=== PATIENT | male | born 1965 | race American Indian/Alaskan Native ===

== ENCOUNTER 2018-02-24 08:05 | Emergency (ER) | payer MEDICARE ==
[2018-02-24] MEDS ORDERED: ZOFRAN IV ONE (08:45)
[2018-02-24] MEDS ORDERED: NACL 0.9% 1000 ML 1,000 ML IV ONE ×3 (08:45→11:35)
[2018-02-24] MEDS ORDERED: ANTIVERT PO ONE (08:46)
[2018-02-24 09:03] LABS: Basophils % (Auto) 0.5 % (0.0-1.8); Eosinophils % (Auto) 0.2 % (0.0-4.3); Hematocrit 50.5 % (35.5-45.6); Hemoglobin 16.7 gm/dl (11.8-15.2); Lymphocytes # (Auto) 1.3 K/mm3 (1.2-5.4); Lymphocytes % (Auto) 15.1 % (13.4-35.0); Mean Corpuscular HGB Conc 33 % (32-34); Mean Corpuscular Volume 92 fl (84-94); Monocytes # (Auto) 0.4 K/mm3 (0.0-0.8); Monocytes % (Auto) 4.4 % (0.0-7.3); Platelet Count 248 K/mm3 (140-440); Red Blood Count 5.49 M/mm3 (3.65-5.03); Red Cell Distribution Width 14.5 % (13.2-15.2)
[2018-02-24 09:10] LABS: Creatine Kinase MB 1.8 ng/mL (0.0-4.0)
[2018-02-24 09:11] LABS: Alanine Aminotransferase 23 units/L (7-56); Albumin 4.7 g/dL (3.9-5); BUN/Creatinine Ratio 10; Blood Urea Nitrogen 11 mg/dL (9-20); Calcium 9.5 mg/dL (8.4-10.2); Hemolysis Index 47
[2018-02-24 09:28] LABS: INR 0.97 (0.87-1.13)
--- NOTE | 2018-02-24 09:28 | Emergency Department Report ---
HPI - General Chief Complaint: Nausea/Vomiting/Diarrhea Time Seen by Provider: 02/24/18 08:35 - HPI HPI: Room 3 The patient is a 52-year-old male presenting with a chief complaint of vomiting and dizziness. Patient states he's had nausea vomiting and diarrhea for the past 3 days. This morning the patient felt very weak and dizzy whenever he attempted to lift himself from the bed. Patient states it feels the room spinning. Patient complains of occasional pain in bilateral lower quadrants but states that the pain in his left lower quadrant has been intermittent for 8-10 years. Patient complains of chronic pain in his lower back and neck also p resent for years. Patient denies any other new pain. Patient denies recent antibiotic use. Patient denies fever or sick contacts. Location: Gastrointestinal system, see above Duration: 3 days Quality: [See above] Severity: Moderate Modifying factors: [see above] Context: [see above] Mode of transportation: [not driving] ED Past Medical Hx - Past Medical History Hx Hypertension: Yes Hx Arthritis: Yes (hands, right knees, back) Additional medical history: high cholesterol, chronic back pain - Surgical History Past Surgical History?: Yes Additional Surgical History: back - Family History Family history: no significant - Social History Smoking Status: Former Smoker (none 17 years) Substance Use Type: None (denies illicit drug use), Alcohol (occasional) - Medications Home Medications: Home Medications Medication Instructions Recorded Confirmed Last Taken Type Diclofenac Sodium [Pennsaid 1.5%] 22 drops PO BID 09/02/13 09/02/13 08/29/13 History Ibuprofen/Famotidine [Duexis 1 tab PO Q4-6H PRN 09/02/13 09/02/13 Unknown History 800-26.6 mg Tablet] Tizanidine HCl 4 mg PO DAILY 09/02/13 09/02/13 08/29/13 History traZODone [Desyrel] 100 mg PO QHS 09/02/13 09/02/13 Unknown History Bacitracin/Polymyxin B Sulfate 1 applicatio TP DAILY #1 oint...g. 10/03/17 Unknown Rx [Polysporin Ointment] HYDROcodone/ACETAMINOPHEN [Elmore 1 each PO Q4-6H PRN #20 tablet 10/03/17 Unknown Rx 10-325 Tablet] Sulfamethoxazole/Trimethoprim 1 each PO BID #20 tablet 10/03/17 Unknown Rx [Bactrim DS TAB] Meclizine [Antivert] 25 mg PO TID PRN #20 tablet 02/24/18 Unknown Rx Ondansetron [Zofran ODT TAB] 8 mg PO Q8HR #20 tab.rapdis 02/24/18 Unknown Rx Promethazine [Phenergan] 25 mg IA Q6HR PRN #5 supp.rect 02/24/18 Unknown Rx ED Review of Systems ROS: Stated complaint: VOMITING/DIARRHEA/DISORIENTATION Other details as noted in HPI Constitutional: denies: fever Eyes: denies: eye pain ENT: denies: throat pain Respiratory: no symptoms reported Cardiovascular: denies: chest pain Endocrine: no symptoms reported Gastrointestinal: abdominal pain, nausea, vomiting, diarrhea Genitourinary: denies: dysuria Musculoskeletal: back pain, arthralgia Neurological: vertigo. denies: headache Physical Exam - Physical Exam Vital Signs: Vital Signs 02/24/18 02/24/18 02/24/18 08:19 08:56 09:00 Temperature 97.3 F L Pulse Rate 70 67 Respiratory 18 16 Rate Blood Pressure 142/97 120/82 123/83 O2 Sat by Pulse 97 96 Oximetry Physical Exam: GENERAL: The patient is well-developed well-nourished male lying on stretcher not appearing to be in acute distress. [] HEENT: Normocephalic. Atraumatic. Extraocular motions are intact. Patient has moist mucous membranes. No nystagmus noted NECK: Supple. No meningitic signs are noted. CHEST/LUNGS: Clear to auscultation. There is no respiratory distress noted. HEART/CARDIOVASCULAR: Regular. There is no tachycardia. There is no gallop rub or murmur. ABDOMEN: Abdomen is soft, with mild discomfort to palpation in the left lower quadrant and right lower quadrant. Patient has normal bowel sounds. There is no abdominal distention. SKIN: There is no rash. There is no edema. There is no diaphoresis. NEURO: The patient is awake, alert, and oriented. The patient is cooperative. The patient has no focal neurologic deficits. The patient has normal speech. The patient a seventh nerve palsy from previous traumatic injury at work otherwise Cranial nerves II through XII grossly intact, no drift. No dysmetria noted with [id number] bilaterally MUSCULOSKELETAL: There is no evidence of acute injury. ED Course Vital Signs 02/24/18 02/24/18 02/24/18 08:19 08:56 09:00 Temperature 97.3 F L Pulse Rate 70 67 Respiratory 18 16 Rate Blood Pressure 142/97 120/82 123/83 O2 Sat by Pulse 97 96 Oximetry ED Medical Decision Making - Lab Data Result diagrams: 02/24/18 08:38 02/24/18 08:38 Laboratory Tests 02/24/18 02/24/18 02/24/18 08:38 08:38 08:45 WBC 8.9 RBC 5.49 H Hgb 16.7 H Hct 50.5 H MCV 92 MCH 30 MCHC 33 RDW 14.5 Plt Count 248 Lymph % (Auto) 15.1 [place] % (Auto) 4.4 Eos % (Auto) 0.2 Baso % (Auto) 0.5 Lymph # 1.3 [place] # 0.4 Eos # 0.0 Baso # 0.0 Seg Neutrophils % 79.8 H Seg Neutrophils # 7.1 PT 13.3 INR 0.97 APTT 22.4 L Sodium 141 Potassium 4.1 Chloride 99.2 Carbon Dioxide 25 Anion Gap 21 BUN 11 Creatinine 1.1 Estimated GFR > 60 BUN/Creatinine Ratio 10 Glucose 142 H Calcium 9.5 Total Bilirubin 0.80 AST 24 ALT 23 Alkaline Phosphatase 58 Total Creatine Kinase 324 H CK-MB (CK-2) 1.8 CK-MB (CK-2) Rel Index 0.5 Troponin T < 0.010 Total Protein 8.1 Albumin 4.7 Albumin/Globulin Ratio 1.4 Lipase 51 Urine Color Urine Turbidity Urine pH Ur Specific [place] Urine Protein Urine Glucose (UA) Urine Ketones Urine Blood Urine Nitrite Urine Bilirubin Urine Urobilinogen Ur Leukocyte Esterase Urine WBC (Auto) Urine RBC (Auto) Urine Mucus 02/24/18 10:12 WBC RBC Hgb Hct MCV MCH MCHC RDW Plt Count Lymph % (Auto) [place] % (Auto) Eos % (Auto) Baso % (Auto) Lymph # [place] # Eos # Baso # Seg Neutrophils % Seg Neutrophils # PT INR APTT Sodium Potassium Chloride Carbon Dioxide Anion Gap BUN Creatinine Estimated GFR BUN/Creatinine Ratio Glucose Calcium Total Bilirubin AST ALT Alkaline Phosphatase Total Creatine Kinase CK-MB (CK-2) CK-MB (CK-2) Rel Index Troponin T Total Protein Albumin Albumin/Globulin Ratio Lipase Urine Color Straw Urine Turbidity Clear Urine pH 6.0 Ur Specific [place] 1.026 Urine Protein <15 mg/dl Urine Glucose (UA) Neg Urine Ketones 20 Urine Blood Neg Urine Nitrite Neg Urine Bilirubin Neg Urine Urobilinogen < 2.0 Ur Leukocyte Esterase Neg Urine WBC (Auto) 1.0 Urine RBC (Auto) Not Reportable Urine Mucus Few - EKG Data -: EKG Interpreted by Sd EKG shows normal: sinus rhythm Rate: normal - EKG Data When compared to previous EKG there are: previous EKG unavailable Interpretation: other (no ischemic changes seen) - Radiology Data Radiology results: report reviewed (CT head, CT abdomen and pelvis, MRI brain, MRA neck), image reviewed (CT head, CT abdomen and pelvis, MRI brain, MRA neck) Findings [address] [address] Cat Scan Report Signed Patient: LARS BRENNAN MR#: [id number] : 1965 Acct:[id number] Age/Sex: 52 / M ADM Date: 02/24/18 Loc: ED Attending Dr: Ordering Physician: BECKY GODWIN MD Date of Service: 02/24/18 Procedure(s): CT head/brain wo con Accession Number(s): [id number] cc: BECKY GODWIN MD CT HEAD WITHOUT CONTRAST: HISTORY: Dizziness. TECHNIQUE: Sequential 2.5mm CT images. COMPARISON: none. FINDINGS: Cerebral Parenchyma: Within normal limits. Cerebellum: Within normal limits. Brainstem: Within normal limits. Ventricles: Normal. Sella: Normal. Extra-axial spaces: Normal. Basal Cisterns: Normal. Intracranial Hemorrhage: None. Midline Shift: None. Calvarium: Normal. Sinuses: Normal. Mastoid Air Cells: Normal. Visualized Orbits: Normal. IMPRESSION: Cranial CT scan within normal limits. Transcribed By: TTR Dictated By: ANU CEDILLO JR, MD Electronically Authenticated By: ANU CEDILLO JR, MD Signed Date/Time: 02/24/18 1005 DD/ 1005 TD/TT: 02/24/18 [address] [address] Cat Scan Report Signed Patient: LARS BRENNAN MR#: [id number] : 1965 Acct:[id number] Age/Sex: 52 / M ADM Date: 02/24/18 Loc: ED Attending Dr: Ordering Physician: BECKY GODWIN MD Date of Service: 02/24/18 Procedure(s): CT abdomen pelvis w con Accession Number(s): [id number] cc: BECKY GODWIN MD CT ABDOMEN PELVIS WITH CONTRAST: HISTORY: Vomiting, diarrhea, right lower quadrant pain, left lower quadrant pain. COMPARISON: none. TECHNIQUE: Helical CT in 1.25mm i ntervals following IV contrast. Sagittal and coronal reconstructions. FINDINGS: Lung bases: Normal. Liver: Mild fatty infiltration is identified throughout the liver. A 2.9 cm cavernous hemangioma is noted in the right hepatic lobe. A second 2.6 cm cavernous hemangiomas noted in the left hepatic lobe. No suspicious liver mass. Biliary system: Normal. Pancreas: Normal. Spleen: Normal. Kidneys/ureters/bladder: A 4.4 mm calculus is identified in the distal right ureter. This may actually represent 2 smaller adjacent stones. There is minimal right hydronephrosis. A 2 mm calyceal stone is also identified in the mid right kidney. No left hydronephrosis. There are 2 simple right renal cysts measuring up to 2.8 cm in the superior right kidney. No left renal lesion. The bladder and prostate gland are unremarkable. Adrenal glands: Normal. Aorta: Normal. Intestines: Within normal limits given no oral contrast was administered. Appendix: Normal. Pelvic viscera: Normal. Ascites: None. Adenopathy: None. Musculoskeletal: Normal. IMPRESSION: 4.4 mm calculus in the distal right ureter, minimally obstructing. 2 mm right renal stone, nonobstructing. Right renal cysts. Cavernous hemangiomas of the liver. No acute inflammatory process is identified. Transcribed By: TTR Dictated By: ANU CEDILLO JR, MD Electronically Authenticated By: ANU CEDILLO JR, MD Signed Date/Time: 02/24/18 1035 DD/ 1031 TD/TT: 02/24/18 1035 [facility] [address] [place] [address] Magnetic Resonance Report Signed Patient: LARS BRENNAN MR#: [id number] : 1965 Acct:[id number] Age/Sex: 52 / M ADM Date: 02/24/18 Loc: ED Attending Dr: Ordering Physician: BECKY GODWIN MD Date of Service: 02/24/18 Procedure(s): MR MRA/MRV neck wo con Accession Number(s): [id number] cc: BECKY GODWIN MD FINAL REPORT EXAM: MR MRA/MRV NECK WO CON HISTORY: vertigoinpatient COMPARISON: None. TECHNIQUE: 3D upma-sg-urrufs imaging of the arteries of the neck was performed. FINDINGS: There is normal signal within the bilateral common carotid arteries, internal carotid arteries, and external carotid arteries. There is normal signal in the bilateral vertebral arteries. There is no dropout to suggest stenosis. There is no evidence of aneurysm. IMPRESSION: Normal MR angiogram of the neck. Transcribed By: PANCHITO Dictated By: RULA PEREZ MD Electronically Authenticated By: RULA PEREZ MD Signed Date/Time: 02/24/181645 DD/ 47 TD/TT: 02/24/181647 [facility] [address] [place] [address] Magnetic Resonance Report Signed Patient: LARS BRENNAN MR#: [id number] : 1965 Acct:[id number] Age/Sex: 52 / M ADM Date: 02/24/18 Loc: ED Attending Dr: Ordering Physician: BECKY GODWIN MD Date of Service: 02/24/18 Procedure(s): MR brain wo con Accession Number(s): [id number] cc: BECKY GODWIN MD FINAL REPORT EXAM: MR BRAIN WO CON HISTORY: vertigoinpatient COMPARISON: None. TECHNIQUE: Multiplanar multisequential imaging of the brain was performed without administration of IV contrast. FINDINGS: There is no restricted diffusion to suggest acute ischemic injury. There is no susceptibility artifact on gradient echo imaging to suggest parenchymal hemorrhage. There is normal busby-white differentiation. There is normal brain volume for the patient's age. There is no mass or mass effect. The ventricles are midline and are not enlarged. The subarachnoid spaces and basilar cisterns are clear. The flow voids at the base of the brain are intact. There is normal signal of the bony anita rium and the soft tissues of the scalp. IMPRESSION: No acute intracranial abnormality. Transcribed By: PANCHITO Dictated By: RULA PEREZ MD Electronically Authenticated By: RULA PEREZ MD Signed Date/Time: 02/24/181650 DD/ 52 TD/TT: 02/24/181652 - Differential Diagnosis gastroenteritis, dehydration, small bowel obstruction, ICH Critical care attestation.: If time is entered above; I have spent that time in minutes in the direct care of this critically ill patient, excluding procedure time. ED Disposition Clinical Impression: Vertigo Disposition: DC-01 TO HOME OR SELFCARE Is pt being admited?: No Does the pt Need Aspirin: No Condition: Stable Instructions: Vertigo (ED) Additional Instructions: Return to the emergency department immediately should you develop worsening symptoms, fever, inability to tolerate food or liquid or any other concerns. Prescriptions: Meclizine [Antivert] 25 mg PO TID PRN #20 tablet PRN Reason: Vertigo Ondansetron [Zofran ODT TAB] 8 mg PO Q8HR #20 tab.rapdis Promethazine [Phenergan] 25 mg IA Q6HR PRN #5 supp.rect PRN Reason: Vomiting Referrals: PRIMARY CARE, [Primary Care Provider] - 3-5 Days KYARA HOPKINS MD [Staff Physician] - 3-5 Days (Dr. Hopkins is a neurologist. Please follow up with him for further evaluation) Forms: Accompanied Note
[2018-02-24 09:29] LABS: Partial Thromboplastin Time 22.4 Sec. (24.2-36.6)
--- NOTE | 2018-02-24 10:08 | Cat Scan Report ---
CT HEAD WITHOUT CONTRAST: HISTORY: Dizziness. TECHNIQUE: Sequential 2.5mm CT images. COMPARISON: none. FINDINGS: Cerebral Parenchyma: Within normal limits. Cerebellum: Within normal limits. Brainstem: Within normal limits. Ventricles: Normal. Sella: Normal. Extra-axial spaces: Normal. Basal Cisterns: Normal. Intracranial Hemorrhage: None. Midline Shift: None. Calvarium: Normal. Sinuses: Normal. Mastoid Air Cells: Normal. Visualized Orbits: Normal. IMPRESSION: Cranial CT scan within normal limits.
--- NOTE | 2018-02-24 10:38 | Cat Scan Report ---
CT ABDOMEN PELVIS WITH CONTRAST: HISTORY: Vomiting, diarrhea, right lower quadrant pain, left lower quadrant pain. COMPARISON: none. TECHNIQUE: Helical CT in 1.25mm intervals following IV contrast. Sagittal and coronal reconstructions. FINDINGS: Lung bases: Normal. Liver: Mild fatty infiltration is identified throughout the liver. A 2.9 cm cavernous hemangioma is noted in the right hepatic lobe. A second 2.6 cm cavernous hemangiomas noted in the left hepatic lobe. No suspicious liver mass. Biliary system: Normal. Pancreas: Normal. Spleen: Normal. Kidneys/ureters/bladder: A 4.4 mm calculus is identified in the distal right ureter. This may actually represent 2 smaller adjacent stones. There is minimal right hydronephrosis. A 2 mm calyceal stone is also identified in the mid right kidney. No left hydronephrosis. There are 2 simple right renal cysts measuring up to 2.8 cm in the superior right kidney. No left renal lesion. The bladder and prostate gland are unremarkable. Adrenal glands: Normal. Aorta: Normal. Intestines: Within normal limits given no oral contrast was administered. Appendix: Normal. Pelvic viscera: Normal. Ascites: None. Adenopathy: None. Musculoskeletal: Normal. IMPRESSION: 4.4 mm calculus in the distal right ureter, minimally obstructing. 2 mm right renal stone, nonobstructing. Right renal cysts. Cavernous hemangiomas of the liver. No acute inflammatory process is identified.
[2018-02-24 10:51] LABS: Bilirubin,Urine NEG (Negative); Blood,Urine NEG (Negative); Color,Urine Straw (Yellow); Mucus,Urine FEW /HPF; Protein,Urine <15 mg/dL mg/dL (Negative); Urobilinogen,Urine < 2.0 mg/dL (<2.0)
--- NOTE | 2018-02-24 16:46 | Magnetic Resonance Report ---
FINAL REPORT EXAM: MR MRA/MRV NECK WO CON HISTORY: vertigoinpatient COMPARISON: None. TECHNIQUE: 3D [id number]-bb-cdaspz imaging of the arteries of the neck was performed. FINDINGS: There is normal signal within the bilateral common carotid arteries, internal carotid arteries, and e xternal carotid arteries. There is normal signal in the bilateral vertebral arteries. There is no paul pout to suggest stenosis. There is no evidence of aneurysm. IMPRESSION: Normal MR angiogram of the neck.
--- NOTE | 2018-02-24 16:51 | Magnetic Resonance Report ---
FINAL REPORT EXAM: MR BRAIN WO CON HISTORY: vertigoinpatient COMPARISON: None. TECHNIQUE: Multiplanar multisequential imaging of the brain was performed without administration of IV contrast. FINDINGS: There is no restricted diffusion to suggest acute ischemic injury. There is no susceptibility artifac t on gradient echo imaging to suggest parenchymal hemorrhage. There is normal busby-white differentiat ion. There is normal brain volume for the patient's age. There is no mass or mass effect. The ventric les are midline and are not enlarged. The subarachnoid spaces and basilar cisterns are clear. The rachael w voids at the base of the brain are intact. There is normal signal of the bony calvarium and the sof t tissues of the scalp. IMPRESSION: No acute intracranial abnormality.
[2018-02-24 17:14] VITALS: BP 121/82
== END 2018-02-24 17:15 | disposition home or self-care (01) ==
LOC: ED 08:05
DX: R42 Dizziness and giddiness (principal); R11.2 Nausea with vomiting, unspecified; R19.7 Diarrhea, unspecified; R10.32 Left lower quadrant pain; M54.2 Cervicalgia; I10 Essential (primary) hypertension; M17.11 Unilateral primary osteoarthritis, right knee; M19.042 Primary osteoarthritis, left hand; M19.041 Primary osteoarthritis, right hand; M19.90 Unspecified osteoarthritis, unspecified site; G89.29 Other chronic pain; E78.00 Pure hypercholesterolemia, unspecified; Z87.891 Personal history of nicotine dependence; M54.5 Low back pain; R93.0 Abnormal findings on diagnostic imaging of skull and head, not elsewhere classified
CPT/HCPCS: 36415; 70450; 70547; 70551; 74177; 80053; 81001; 82550; 82553; 83690; 84484; 85025; 85610; 85730; 93005; 93010; 96361; 96374; 99284; J2405; J7030; Q9967

== ENCOUNTER 2018-06-28 10:57 | Emergency (ER) | payer MEDICARE ==
--- NOTE | 2018-06-28 11:33 | Emergency Department Report ---
Blank Doc - Documentation Documentation: This is a 52-year-old male that presents with lower back pain after using the restroom. Denies any trauma. This initial assessment/diagnostic orders/clinical plan/treatment(s) is/are subject to change based on patient's health status, clinical progression and re- assessment by fellow clinical providers in the ED. Further treatment and workup at subsequent clinical providers discretion. Patient/guardians urged not to elope from the ED as their condition may be serious if not clinically assessed and managed. Initial orders include: 1- Patient sent to [facility] for further evaluation and treatment
[2018-06-28] MEDS ORDERED: DELTASONE PO ONE (13:34)
[2018-06-28] MEDS ORDERED: TORADOL IM ONE (13:34)
--- NOTE | 2018-06-28 13:37 | Emergency Department Report ---
ED Back Pain/Injury HPI - General Chief Complaint: Back Pain/Injury Stated Complaint: LOWER BACK PAIN/EXTREME Time Seen by Provider: 06/28/18 11:32 Source: patient Limitations: No Limitations - History of Present Illness Initial Comments: This is a 52-year-old male with a history of chronic back pain who presents today stating that he aggravated his back earlier this morning while he was in the bathroom. Patient states he fell pain on his right side. Lower back pain radiated down his buttocks. Patient states that earlier this morning pain was about 12 out of 10 and now is gone down to about 7 out of 10 intensity. Patient states that he does see a pain clinic . He denies dysuria, trauma or any injuries MD Complaint: back pain - Related Data Home Medications Medication Instructions Recorded Confirmed Last Taken Diclofenac Sodium [Pennsaid 1.5%] 22 drops PO BID 09/02/13 09/02/13 08/29/13 Ibuprofen/Famotidine [Duexis 1 tab PO Q4-6H PRN 09/02/13 09/02/13 Unknown 800-26.6 mg Tablet] Tizanidine HCl 4 mg PO DAILY 09/02/13 09/02/13 08/29/13 traZODone [Desyrel] 100 mg PO QHS 09/02/13 09/02/13 Unknown Previous Rx's Medication Instructions Recorded Last Taken Type Bacitracin/Polymyxin B Sulfate 1 applicatio TP DAILY #1 oint...g. 10/03/17 Unknown Rx [Polysporin Ointment] HYDROcodone/ACETAMINOPHEN [[place] 1 each PO Q4-6H PRN #20 tablet 10/03/17 Unknown Rx 10-325 Tablet] Sulfamethoxazole/Trimethoprim 1 each PO BID #20 tablet 10/03/17 Unknown Rx [Bactrim DS TAB] Meclizine [Antivert] 25 mg PO TID PRN #20 tablet 02/24/18 Unknown Rx Ondansetron [Zofran ODT TAB] 8 mg PO Q8HR #20 tab.rapdis 02/24/18 Unknown Rx Promethazine [Phenergan] [address] Q6HR PRN #5 supp.rect 02/24/18 Unknown Rx Allergies Allergy/AdvReac Type Severity Reaction Status Date / Time No Known Allergies Allergy Unverified 09/02/13 06:41 ED Review of Systems ROS: Stated complaint: LOWER BACK PAIN/EXTREME Other details as noted in HPI Comment: All other systems reviewed and negative ED Past Medical Hx - Past Medical History Previous Medical History?: Yes Hx Hypertension: Yes Hx Heart Attack/AMI: No Hx Congestive Heart Failure: No Hx Arthritis: Yes (hands, right knees, back) Hx HIV: No Additional medical history: high cholesterol, chronic back pain - Surgical History Past Surgical History?: Yes Additional Surgical History: back - Social History Smoking Status: Never Smoker Substance Use Type: Alcohol - Medications Home Medications: Home Medications Medication Instructions Recorded Confirmed Last Taken Type Diclofenac Sodium [Pennsaid 1.5%] 22 drops PO BID 09/02/13 09/02/13 08/29/13 History Ibuprofen/Famotidine [Duexis 1 tab PO Q4-6H PRN 09/02/13 09/02/13 Unknown History 800-26.6 mg Tablet] Tizanidine HCl 4 mg PO DAILY 09/02/13 09/02/13 08/29/13 History traZODone [Desyrel] 100 mg PO QHS 09/02/13 09/02/13 Unknown History Bacitracin/Polymyxin B Sulfate 1 applicatio TP DAILY #1 oint...g. 10/03/17 Unknown Rx [Polysporin Ointment] HYDROcodone/ACETAMINOPHEN [[place] 1 each PO Q4-6H PRN #20 tablet 10/03/17 Unknown Rx 10-325 Tablet] Sulfamethoxazole/Trimethoprim 1 each PO BID #20 tablet 10/03/17 Unknown Rx [Bactrim DS TAB] Meclizine [Antivert] 25 mg PO TID PRN #20 tablet 02/24/18 Unknown Rx Ondansetron [Zofran ODT TAB] 8 mg PO Q8HR #20 tab.rapdis 02/24/18 Unknown Rx Promethazine [Phenergan] [address] Q6HR PRN #5 supp.rect 02/24/18 Unknown Rx ED Physical Exam - General Limitations: No Limitations General appearance: alert, in no apparent distress - Head Head exam: Present: atraumatic, normocephalic - Eye Eye exam: Present: normal appearance - ENT ENT exam: Present: mucous membranes moist - Neck Neck exam: Present: normal inspection - Respiratory Respiratory exam: Present: normal lung sounds bilaterally. Absent: respiratory distress - Cardiovascular Cardiovascular Exam: Present: regular rate, normal rhythm. Absent: systolic murmur, diastolic murmur, rubs, gallop - GI/Abdominal GI/Abdominal exam: Present: soft, normal bowel sounds - Rectal Rectal exam: Present: deferred - Extremities Exam Extremities exam: Present: normal inspection - Back Exam Back exam: Present: normal inspection - Neurological Exam Neurological exam: Present: alert, oriented X3 - Psychiatric Psychiatric exam: Present: normal affect, normal mood - Skin Skin exam: Present: warm, dry, intact, normal color. Absent: rash ED Course Vital Signs 06/28/18 11:32 Temperature 98.4 F Pulse Rate 75 Respiratory 18 Rate Blood Pressure 159/103 O2 Sat by Pulse 98 Oximetry ED Medical Decision Making - Medical Decision Making This is a 52-year-old male presents to ED with acute on chronic back pain. Patient received Toradol and prednisone ED today. Patient. He takes. Medication at home and sees a pain doctor. Vital signs are normal patient has not acute distress patient is as normal neur ologically deficit. Did discuss the patient continue taking his medication at home. Critical care attestation.: If time is entered above; I have spent that time in minutes in the direct care of this critically ill patient, excluding procedure time. ED Disposition Clinical Impression: Lumbar radicular pain Disposition: DC-01 TO HOME OR SELFCARE Is pt being admited?: No Does the pt Need Aspirin: No Condition: Stable Instructions: Low Back Strain (ED), Lumbar Radiculopathy (ED) Additional Instructions: Make sure to follow up with the primary care physician as discussed. Take all your medications as you've been prescribed. If you have any worsening symptoms or develop new symptoms please return to ED immediately. Referrals: ANUJ LEON MD [Referring] - 3-5 Days Forms: Work/School Release Form(ED) Time of Disposition: 13:34
[2018-06-28 13:57] VITALS: BP 150/100
== END 2018-06-28 13:52 | disposition home or self-care (01) ==
LOC: ED 10:57
DX: G89.29 Other chronic pain (principal); M54.5 Low back pain; I10 Essential (primary) hypertension; M19.90 Unspecified osteoarthritis, unspecified site; E78.00 Pure hypercholesterolemia, unspecified
CPT/HCPCS: 96372; 99282; J1885; J7512